=== PATIENT | male | born 2000 | race Two or more races ===

== ENCOUNTER 2021-01-13 18:22 | Emergency (ER) | payer SELFPAY ==
[~2021-01-13] VITALS: Ht 172.7 cm; Wt 95.3 kg
[2021-01-13 18:44] VITALS: BP 149/99
--- NOTE | 2021-01-13 18:45 | NUR ---
TO ER BED 10, BIBSELF C/O RIGHT BREAST PUNCTURE WOUND S/P DOG BITE, NOT ACTIVELY BLEEDING, AAOX3, BREATHING EVEN AND NON LABORED, AWAITING MD HARRISON
[2021-01-13] MEDS ORDERED: TDAP [DIPH/PERTUSSIS/TET] 0.5 ML VIAL IM ONE ×2 (21:28→21:30)
[2021-01-13] MEDS ORDERED: LIDOCAINE 1%-EPI 1:100,000 20 ML VIAL ONE (21:29)
[2021-01-13] MEDS ORDERED: AMOX/CLAVULANATE 875 MG TABLET PO ONE (21:30)
[2021-01-13] MEDS ORDERED: AMOX/CLAVULANATE 875 MG TABLET ONE (21:46)
[2021-01-13] MEDS ORDERED: AMOX-430 PO (22:07)
--- NOTE | 2021-01-13 22:11 | NUR ---
Patient discharged to home in stable condition. Written and verbal after care instructions given. Patient verbalizes understanding of instruction. Pt ambulated out of ED. VSS.
== END 2021-01-13 22:12 | disposition home or self-care (01) ==
LOC: ER 18:25
DX: S21.111A Laceration without foreign body of right front wall of thorax without penetration into thoracic cavity, initial encounter (principal); W54.0XXA Bitten by dog, initial encounter; Y93.89 Activity, other specified; Y92.89 Other specified places as the place of occurrence of the external cause; Y99.8 Other external cause status
CPT/HCPCS: 12001; 90471; 90715; 99283; J3490

== ENCOUNTER 2021-06-02 07:15 | Emergency (ER) | payer SELFPAY ==
[~2021-06-02] VITALS: Ht 172.7 cm; Wt 99.8 kg
[~2021-06-02 07:15] MED LIST: AMOX-430 PO
--- NOTE | 2021-06-02 07:27 | NUR ---
URINE SPECIMEN COLLECTED AND SENT TO LAB.
--- NOTE | 2021-06-02 07:34 | NUR ---
SEEN AND EXAMINED BY .
--- NOTE | 2021-06-02 07:35 | NUR ---
ER PHLEB AT BEDSIDE FOR BLOOD DRAW.
[2021-06-02 07:54] LABS: BASOPHILS # (AUTO) 0.1 K/uL (0.0-0.2); BASOPHILS % (AUTO) 0.8 % (0.0-2.0); EOSINOPHILS % (AUTO) 4.5 % (0.0-6.0); HEMATOCRIT 46 % (39-51); HEMOGLOBIN 15.6 g/dL (13.5-17.5); LYMPHOCYTES # (AUTO) 2.2 K/uL (0.8-4.8); LYMPHOCYTES % (AUTO) 27.5 % (20.0-44.0); MEAN CORPUSCULAR HGB CONC 34 g/dl (31.0-36.0); MEAN CORPUSCULAR VOLUME 86 fL (80-96); MONOCYTES # (AUTO) 0.4 K/uL (0.1-1.30); MONOCYTES % (AUTO) 5.2 % (2.0-12.0); NEUTROPHILS # (AUTO) 4.9 K/uL (1.8-8.9); PLATELET COUNT (AUTO) 196 K/uL (150-450); RED BLOOD CELL COUNT(AUTO) 5.37 MIL/uL (4.5-6.0); WHITE BLOOD COUNT (AUTO) 7.9 K/uL (4.3-11.0)
[2021-06-02 08:01] LABS: BILIRUBIN,URINE NEGATIVE (NEGATIVE); COLOR,URINE YELLOW (YELLOW); LEUKOCYTE ESTERASE ,URINE SMALL (NEGATIVE); NITRITE, URINE NEGATIVE (NEGATIVE); PROTEIN,URINE 30 mg/dl (NEGATIVE); UGLUCOSE NEGATIVE (NEGATIVE); UROBILINOGEN,URINE 0.2 EU/dL (0.2)
[2021-06-02 08:12] LABS: CALCIUM, SERUM 8.9 mg/dL (8.5-10.1); CREATININE 0.8 mg/dL (0.6-1.3)
[2021-06-02 08:37] LABS: BACTERIA,URINE Few /HPF (None Seen); RBC,URINE TOO NUMEROUS TO COUN /HPF (0-2); SQUAMOUS EPITHELIAL CELL,UR Few /HPF (None Seen); WBC,URINE 21-50 /HPF (0-3)
[2021-06-02] MEDS ORDERED: CIPR-262 PO (08:41)
--- NOTE | 2021-06-02 08:50 | NUR ---
COVID SPECIMEN OBTAINED AND SENT TO LAB.
--- NOTE | 2021-06-02 08:51 | NUR ---
Patient discharged to home in stable condition. Written and verbal after care instructions given. Patient verbalizes understanding of instruction.
[2021-06-02 08:52] VITALS: BP 134/80
== END 2021-06-02 08:53 | disposition home or self-care (01) ==
LOC: ER 07:19
DX: N30.90 Cystitis, unspecified without hematuria (principal); Z79.899 Other long term (current) drug therapy
CPT/HCPCS: 36415; 80048-TC; 81001; 85025-TC; 87086-TC